=== PATIENT | female | born 1950 | race Caucasian/White ===

== ENCOUNTER → 2016-08-12 | Outpatient (CLI) | payer OTHER ==
[~2016-08-12] MED LIST: BENADRYL 25MG C25 MG PO; BIOTIN1 M1 PO; CYMBALTA60 MG PO; GLUCOPHAGE XR500 MG PO; MEGA RED PO; NORCO 10-325 T1 EACH PO; PERCOCET 10-321 EACH PO; PRAVASTATIN SOD20 MG PO; QUINAPRIL-HCTZ1 EAC1 PO; TRAZODONE HCL100 MG PO; VITAMIN D310000 UNI1 PO; WELLBUTRIN SR100 MG PO
== END ==
LOC: MAMO 13:46
DX: R92.8 Other abnormal and inconclusive findings on diagnostic imaging of breast (principal); Z79.890 Hormone replacement therapy; Z78.0 Asymptomatic menopausal state
CPT/HCPCS: 76641-LT; G0206

== ENCOUNTER 2016-10-04 12:19 | Emergency (ER) | payer OTHER ==
[2016-10-04 12:47] LABS: HEMOGLOBIN 14.7 gm/dl (12.3-15.3); RED BLOOD COUNT 4.72 M/UL (4.00-5.10)
[2016-10-04 13:07] LABS: BUN/CREATININE RATIO 19 (0-10)
== END 2016-10-04 17:35 | disposition home or self-care (01) ==
LOC: ER1 12:19
PROVIDERS: Emergency Medicine
DX: R11.2 Nausea with vomiting, unspecified (principal)
CPT/HCPCS: 36415; 74022; 80053; 81001; 82550; 82553; 83690; 83874; 84484; 85025; 87086; 93005; 96361; 96374; 96376; 99284; J2405; J7030